=== PATIENT | male | born 1990 | race Asian ===

== ENCOUNTER 2020-05-12 12:22 | Emergency (ER) | payer SELFPAY ==
[~2020-05-12] VITALS: Ht 180.3 cm; Wt 84.8 kg
[2020-05-12 12:40] VITALS: BP 111/71; Ht 180.3 cm; Wt 84.8 kg
== END 2020-05-12 13:59 | disposition left against medical advice (07) ==
LOC: ED 12:22
DX: Z53.21 Procedure and treatment not carried out due to patient leaving prior to being seen by health care provider (principal)